=== PATIENT | female | born 1980 | race Caucasian/White ===

== ENCOUNTER 2023-02-11 04:37 | Emergency (ER) | payer BC ==
[~2023-02-11] VITALS: Ht 160 cm; Wt 45.4 kg
== END 2023-02-11 06:55 | disposition home or self-care (01) ==
LOC: ED 04:37
DX: S70.02XA Contusion of left hip, initial encounter (principal); M79.672 Pain in left foot; M79.671 Pain in right foot; Z88.0 Allergy status to penicillin; W01.0XXA Fall on same level from slipping, tripping and stumbling without subsequent striking against object, initial encounter; Y93.89 Activity, other specified; Y92.89 Other specified places as the place of occurrence of the external cause; Y99.8 Other external cause status